=== PATIENT | female | born 1940 | race Caucasian/White ===

== ENCOUNTER → 2018-03-21 | Outpatient (CLI) | payer MEDICARE, BC ==
[2018-03-21] MEDS: REGADENOSON 0.4 MG/5 ML DISP.SYRIN. IV (09:43)
== END | disposition home or self-care (01) ==
LOC: NM 08:06
DX: R07.89 Other chest pain (principal); I45.19 Other right bundle-branch block; I10 Essential (primary) hypertension; Z95.5 Presence of coronary angioplasty implant and graft
CPT/HCPCS: 78452; 93017; 96374; 96375; 96376; A9500; J2785